=== PATIENT | male | born 2000 | race Caucasian/White ===

== ENCOUNTER 2021-09-28 13:32 | Emergency (ER) | payer OTHER ==
[2021-09-28] MEDS ORDERED: IBU600 MG PO (14:34)
== END 2021-09-28 14:48 | disposition home or self-care (01) ==
LOC: ER1 13:32
DX: S92.322A Displaced fracture of second metatarsal bone, left foot, initial encounter for closed fracture (principal); W01.0XXA Fall on same level from slipping, tripping and stumbling without subsequent striking against object, initial encounter; Y92.009 Unspecified place in unspecified non-institutional (private) residence as the place of occurrence of the external cause
CPT/HCPCS: 29515; 73600; 73620; 99283